=== PATIENT | female | born 1990 | race African-American/Black ===

== ENCOUNTER 2018-12-07 21:08 | Emergency (ER) | payer SELFPAY ==
[~2018-12-07] VITALS: Ht 165.1 cm; Wt 78.5 kg
[2018-12-08] MEDS ORDERED: HYDROCODONE/ACETAMINOPHEN 10/325MG TABLET PO ONE (00:15)
[2018-12-08] MEDS ORDERED: ONDANSETRON 4MG ODT PO ONE (00:15)
[2018-12-08] MEDS ORDERED: LIDOCAINE HCL/EPINEPHRINE 1%-EPI 1:100,000 30 ML VIAL INFIL ONE (00:15)
[2018-12-08] MEDS ORDERED: LIDOCAINE HCL/EPINEPHRINE 1%-EPI 1:100,000 20 ML VIAL INFIL NR (00:45)
[2018-12-08 02:19] VITALS: BP 122/78
== END 2018-12-08 02:22 | disposition home or self-care (01) ==
LOC: ER 21:08
DX: N75.1 Abscess of Bartholin's gland (principal)
CPT/HCPCS: 56420; 99283; A4217; J3490; Q0162; Z7610